=== PATIENT | male | born 1955 | race Two or more races ===

== ENCOUNTER 2021-05-16 15:05 | Emergency (ER) | payer BC ==
[~2021-05-16] VITALS: Ht 172.7 cm; Wt 81.6 kg
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
[2021-05-16 15:20] VITALS: BP 135/81
--- NOTE | 2021-05-16 15:38 | NUR ---
DR. HOLCOMB AT PT'S BEDSIDE
--- NOTE | 2021-05-16 16:06 | NUR ---
BS 87
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
--- NOTE | 2021-05-16 16:27 | NUR ---
PT TRANSFERRED TO CT VIA [facility]
[2021-05-16] MEDS ORDERED: IV NS 0.9% 250 ML IV ONE (16:29)
[2021-05-16] MEDS ORDERED: IOHEXOL-300 100 ML VIAL IV ONE (16:29)
[2021-05-16 16:48] LABS: BASOPHILS % (AUTO) 0.5 % (0.0-2.0); EOSINOPHILS % (AUTO) 2.5 % (0.0-6.0); HEMATOCRIT 43 % (39-51); HEMOGLOBIN 14.2 g/dL (13.5-17.5); LYMPHOCYTES # (AUTO) 1.8 K/uL (0.8-4.8); LYMPHOCYTES % (AUTO) 29.9 % (20.0-44.0); MEAN CORPUSCULAR HGB CONC 33 g/dl (31.0-36.0); MEAN CORPUSCULAR VOLUME 99 fL (80-96); MONOCYTES # (AUTO) 0.5 K/uL (0.1-1.30); MONOCYTES % (AUTO) 8.7 % (2.0-12.0); NEUTROPHILS # (AUTO) 3.5 K/uL (1.8-8.9); NEUTROPHILS % (AUTO) 58.4 % (43.0-81.0); PLATELET COUNT (AUTO) 164 K/uL (150-450); RED BLOOD CELL COUNT(AUTO) 4.33 MIL/uL (4.5-6.0); WHITE BLOOD COUNT (AUTO) 5.9 K/uL (4.3-11.0)
--- NOTE | 2021-05-16 17:13 | NUR ---
Patient eloped from facility. ER [facility] notified. DC IV WITH NO ACTIVE BLEEDING. PT ambulatory with a steady gait
[2021-05-16 17:21] LABS: ALANINE AMINOTRANSFERASE 18 U/L (12-78); ALBUMIN 3.3 g/dL (3.4-5.0); ALKALINE PHOSPHATASE 135 U/L (46-116); ASPARTATE AMINOTRANSFERASE 21 U/L (15-37); BILIRUBIN,DIRECT 0.1 mg/dL (0.0-0.2); BILIRUBIN,TOTAL 0.3 mg/dL (0.2-1.0); CALCIUM, SERUM 8.3 mg/dL (8.5-10.1); CARBON DIOXIDE 36 mmol/L (21-32); CHLORIDE 103 mmol/L (98-107); CREATININE 1.2 mg/dL (0.6-1.3); GLUCOSE 97 mg/dL (74-106); LIPASE 271 U/L (73-393); POTASSIUM 4.4 mmol/L (3.5-5.1); SODIUM SERUM 141 mmol/L (136-145); TOTAL PROTEIN, SERUM 7.1 g/dL (6.4-8.2); UREA NITROGEN, BLOOD 18 mg/dL (7-18)
== END 2021-05-16 17:19 | disposition left against medical advice (07) ==
LOC: ER 15:14
DX: R51.9 Headache, unspecified (principal); R07.89 Other chest pain; R10.9 Unspecified abdominal pain; M54.50 Low back pain, unspecified; I48.91 Unspecified atrial fibrillation; I25.10 Atherosclerotic heart disease of native coronary artery without angina pectoris; Z98.890 Other specified postprocedural states; V49.69XA Unspecified car occupant injured in collision with other motor vehicles in traffic accident, initial encounter; Y93.89 Activity, other specified; Y92.413 State road as the place of occurrence of the external cause; Y99.8 Other external cause status
CPT/HCPCS: 36415; 70450; 71260; 74177; 80048; 80076; 80320; 82962; 83690; 84484; 85025; 85730; 93005; 99285; J7050; Q9967; G0480